=== PATIENT | male | born 1945 | race Caucasian/White ===

== ENCOUNTER 2017-06-10 21:56 | Inpatient (IN) | payer MEDICARE ==
[~2017-06-10] VITALS: Ht 177.8 cm; Wt 130.0 kg
[~2017-06-10 21:56] MED LIST: ASPIRIN325 MG PO; BENADRYL25 MG PO; CLARITIN10 M1 PO; E 10001000 UNIT PO; FISH OIL1 CAP PO; GLUCOSAMINE500 M1 PO; HYZAAR1 TA2 PO; METO50TA52 PO; MULTI 501 PO; NIASPAN1000 ER PO; SAW PALMETTO1 CAP; TAMSULOSIN HCL0.4 MG PO; TYLENOL PM PO; VITAMIN B CO PO; VITAMIN D31000 UNI1 PO; ZOCOR20 MG PO
--- NOTE | 2017-06-10 22:08 | NUR ---
PATIENT TO TREATMENT AREA FROM WAITING ROOM. UNDRESSED INTO A GOWN. TRIAGE COMPLETED AT BEDSIDE. AWAITING MD STEVENS.
[2017-06-10 22:41] LABS: HEMATOCRIT 42.3 % (39.0-50.0); HEMOGLOBIN 14.5 g/dl (14.0-18.0); IMMATURE GRANULOCYTES 0.2 % (0.0-1.0); MEAN CELL VOLUME 92.4 fL CALC (80.0-100.0); MEAN CORPUSCULAR HGB 31.7 pG CALC (26.0-32.0); MEAN CORPUSCULAR HGB CONC 34.3 g/L CALC (32.0-36.0); NEUT# 9.22 thou/uL (1.82-7.42); RED BLOOD COUNT 4.58 mill/uL (4.70-6.10); RED CELL DISTRI WIDTH 13.1 % (11.5-15.5)
[2017-06-10 22:50] LABS: INFLUENZA A NONE DETECTED (NONE DETECT); INFLUENZA B NONE DETECTED (NONE DETECT)
[2017-06-10 23:25] LABS: URINE BILIRUBIN - DIPSTICK NEGATIVE (NEGATIVE); URINE BLOOD DIPSTICK NEGATIVE (NEGATIVE); URINE CLARITY CLEAR; URINE COLOR YELLOW; URINE GLUCOSE - DIPSTICK NEGATIVE (NEGATIVE); URINE KETONE NEGATIVE (NEGATIVE); URINE LEUK ESTERASE NEGATIVE (Negative); URINE NITRITE - DIPSTICK NEGATIVE (Negative); URINE PH 5.5 (4.5-8.0); URINE PROTEIN - DIPSTICK NEGATIVE (NEG-TRACE); URINE SPECIFIC GRAVITY 1.015; URINE UROBILINOGEN - DIPSTICK 0.2 E.U./dL (0.2)
[2017-06-10 23:27] LABS: ALBUMIN 4.2 g/dL (3.2-5.0); ALKALINE PHOSPHATASE 98 u/l (38-126); ANION GAP 16 (6-22 (CALC)); BILIRUBIN, TOTAL 0.4 mg/dL (0.0-1.4); BUN 18 mg/dL (8-23); BUN/CREATININE RATIO 19 (12-20 (CALC)); CARBON DIOXIDE 25 mmol/l (22-30); CHLORIDE 103 mmol/l (95-108); GFR > 60 ML/MIN (>=60 (CALC)); GFR FOR AFR.AMER. > 60 ML/MIN (>=60 (CALC)); POTASSIUM 4.5 mmol/l (3.5-5.1); SGOT/AST 30 u/l (19-48); SGPT/ALT 31 u/l (11-66); SODIUM 139 mmol/l (137-146); TOTAL PROTEIN 6.6 g/dL (6.3-8.2)
--- NOTE | 2017-06-10 23:45 | NUR ---
DISCUSSED CURRENT ANTIBIOTIC REGIMEN. RADIOLOGY RESULTS PENDING.
--- NOTE | 2017-06-11 00:35 | NUR ---
RESTING QUIETLY AWAITING DISPOSITION.
--- NOTE | 2017-06-11 01:36 | NUR ---
Admission Note Report Given to: ADONIS BUTTS Transported by: Wheelchair X Stretcher Transported with: X Nurse Transporter X Patent IV O2 Development Editor
[2017-06-11 01:38] VITALS: BP 111/60
--- NOTE | 2017-06-11 01:38 | NUR ---
RECEIVED FROM ER VIA STRETCHER ACCOMPANIED BY ER NURSE. AMBULATING TO STANDING SCALE THEN TO BED WITH STEADY GAIT. A/O X3, RESPIRATIONS EVEN AND UNLABORED ON RA. C/O NOT FEELING WELL AND HIGH FEVER PRIOR TO COMMING TO ER. NS INFUSING TO RH WITH NO COMPLICATION. ORIENTED TO BED COTROLS AND CALL LIGHT FOR ASSISTANCE. WILL CONTINUE TO MONITOR.
--- NOTE | 2017-06-11 04:30 | NUR ---
RESTING ON LEFT SIDE WITH EYES CLOSED, RESPIRATIONS EVEN AND UNLABORED. CALL LIGHT IN REACH.
[2017-06-11 04:32] VITALS: BP 126/73
--- NOTE | 2017-06-11 07:40 | NUR ---
ASSESSMENT IS COMPLTED: IV SITE IS FREE FROM REDNESS OR EDEMA. NO DISTRESS THIS AM. CONTINUE TO OBSERVE AND MONITOR.
[2017-06-11 09:00] VITALS: BP 119/60
[2017-06-11] MEDS ORDERED: PROSTATE SR PO (10:05)
--- NOTE | 2017-06-11 12:44 | NUR ---
PT'S WOULD LIKE HIS WALLET TO TAKE HOME. CALLED BUSINESS OFFICE AND THEY ARE BRINGING IT UP TO PT AND .
[2017-06-11 15:22] VITALS: BP 144/70
--- NOTE | 2017-06-11 15:48 | NUR ---
Patient feels good. Patient was educated on current abx taken. denied any side effects pertaining to medications. c
--- NOTE | 2017-06-11 16:00 | NUR ---
PT IS RELAXING IN BED WITH NO DISTRSS NOTED IV SITE IS FREE FROM REDNESS OR EDEMA.
--- NOTE | 2017-06-11 19:05 | NUR ---
REPORT RECEIVED FROM FAVIO EDMOND;PT RESTING IN SEMI FOWLERS POSITION;INTRODUCED SELF TO PT AND POC DISCUSSED;PT ENCOURAGED TO CALL FOR ASSISTANCE IF NEEDED;CALL LIGHT IN REACH;WILL CONTINUE TO MONITOR
[2017-06-11 20:00] VITALS: BP 137/64
--- NOTE | 2017-06-11 21:10 | NUR ---
PT RESTING IN SEMI FOWLERS POSITION WITH AT BEDSIDE;A&O X3;ASSESSMENT COMPLETED;RESPIRATIONS EVEN AND UNLABORED ON RA;WHEEZING NOTED WITH NON-PRODUCTIVE COUGH; PT VOICES NO PAIN OR DISCOMFORTS;ABDOMEN SOFT UPON PALPATION;STRONG PEDAL PULSES;#20G TO RIGHT HAND FLUSHED AND PATENT,SITE APPEARS HEALTHY AND FREE FROM REDNESS;PERRLA;SAFETY PRECAUTIONS REINFORCED AND PT ENCOURAGED TO CALL FOR ASSISTANCE IF NEEDED;CALL LIGHT IN REACH;WILL CONTINUE TO MONITOR
--- NOTE | 2017-06-11 23:20 | NUR ---
#20G TO RIGHT HAND FOUND INFILTRATED;SITE REMOVED WITH CATHETER INTACT;NEW #22G STARTED TO LEFT HAND FLUSHED AND PATENT;PT DENIES ANY OTHER NEEDS AT THIS TIME;CALL LIGHT IN REACH;WILL CONTINUE TO MONITOR
--- NOTE | 2017-06-11 23:40 | NUR ---
PT RESTING IN SEMI FOWLERS POSITION;PT VOICES NO COMPLAINTS OF PAIN OR DISCOMFORTS;RESPIRATIONS EVEN AND UNLABORED ON RA;FRESH WATER PROVIDED PER REQUEST;CALL LIGHT IN REACH;WILL CONTINUE TO MONITOR
[2017-06-12 04:29] VITALS: BP 134/64
--- NOTE | 2017-06-12 04:30 | NUR ---
PT APPEARS TO BE SLEEPING WITH EYES CLOSED IN SEMI FOWLERS POSITION;PT WAKES TO VERBAL STIMULI;VS OBTAINED;RESPIRATIONS EVEN AND UNLABORED ON RA;PT CLAMMY AND WARM TO TOUCH,CURRENT TEMP 98.3;PT REPORTS VOIDING IN THE TOILET AND NOT THE URINAL,RE-EDUCATED ON COLLECTING I&O'S;PT REPORTS VOIDING 1 TIME LAST NIGHT "AROUND 600CC";PT DENIES ANY OTHER NEEDS AT THIS TIME;CALL LIGHT IN REACH;WILL CONTINUE TO MONITOR
[2017-06-12 05:21] LABS: HEMATOCRIT 39.5 % (39.0-50.0); HEMOGLOBIN 13.4 g/dl (14.0-18.0); IMMATURE GRANULOCYTES 0.6 % (0.0-1.0); MEAN CELL VOLUME 92.3 fL CALC (80.0-100.0); MEAN CORPUSCULAR HGB 31.3 pG CALC (26.0-32.0); MEAN CORPUSCULAR HGB CONC 33.9 g/L CALC (32.0-36.0); NEUT# 6.04 thou/uL (1.82-7.42); RED BLOOD COUNT 4.28 mill/uL (4.70-6.10); RED CELL DISTRI WIDTH 12.8 % (11.5-15.5)
[2017-06-12 05:28] LABS: ANION GAP 16 (6-22 (CALC)); BUN 14 mg/dL (8-23); BUN/CREATININE RATIO 20 (12-20 (CALC)); CARBON DIOXIDE 24 mmol/l (22-30); CHLORIDE 105 mmol/l (95-108); CREATININE 0.7 mg/dL (0.7-1.3); GFR > 60 ML/MIN (>=60 (CALC)); GFR FOR AFR.AMER. > 60 ML/MIN (>=60 (CALC)); MAGNESIUM 2.1 mg/dL (1.6-2.3); POTASSIUM 4.6 mmol/l (3.5-5.1); SODIUM 141 mmol/l (137-146)
[2017-06-12 08:10] VITALS: BP 110/47
--- NOTE | 2017-06-12 08:10 | NUR ---
ASSESSMENT IS COMPLTED: IV SITE IS FREE FROM REDNESS OR EDEMA. BREATH SOUNDS ARE BETTER , HR IS REG,PULSES ARE STRONG X4,ABD IS SOFT WITH ACTIVE BS,. NO DISTRESS NOTED.
[2017-06-12 09:39] VITALS: BP 110/47
--- NOTE | 2017-06-12 12:15 | NUR ---
PT IS RELAXING IM BED WITH NO DISTRESS NOTED IV SITE IS FREE FROM REDNESS OR EDEMA.
[2017-06-12] MEDS ORDERED: PREDNISONE10 MG PO (13:39)
[2017-06-12] MEDS ORDERED: LEVAQUIN750 MG PO (13:39)
--- NOTE | 2017-06-12 14:31 | NUR ---
Patient feels better today and is getting a discharge. Patient was educated on Levofloxacin and Prednisone.c
--- NOTE | 2017-06-12 14:35 | NUR ---
PT RECEIVED DISCHARGE INSTRUCTIONS IV SITE DISCONTINEUD CATHTER INTACT, NO REDNESS OR EDEMA. FAMILY IN THE ROOM. VERBALIZED UNDERSTANDING. CONTINUE TO OBSERVE AND MONITOR.
== END 2017-06-12 14:25 | disposition home or self-care (01) | DRG 194 ==
LOC: ED 21:56 → ED-I 06-11 → ED 06-11 00:43 → MS2 06-11 00:44
PROVIDERS: Emergency Medicine; Nurse Practitioner Family; ADMIT Internal Medicine; ATTEND Internal Medicine
DX: J18.9 Pneumonia, unspecified organism (principal); I50.32 Chronic diastolic (congestive) heart failure; I11.0 Hypertensive heart disease with heart failure; Z68.41 Body mass index [BMI] 40.0-44.9, adult; E78.5 Hyperlipidemia, unspecified; J02.0 Streptococcal pharyngitis; Z98.84 Bariatric surgery status; Z87.891 Personal history of nicotine dependence

== ENCOUNTER 2018-05-29 10:10 | Observation (INO) | payer MEDICARE ==
[~2018-05-29] VITALS: Ht 177.8 cm; Wt 129.0 kg
[~2018-05-29 10:10] MED LIST changes: +LEVAQUIN750 MG PO; +PREDNISONE10 MG PO; +PROSTATE SR PO
[2018-05-29 10:50] LABS: HEMATOCRIT 39.1 % (39.0-50.0); HEMOGLOBIN 13.3 g/dl (14.0-18.0); IMMATURE GRANULOCYTES 0.4 % (0.0-5.0); MEAN CELL VOLUME 94.7 fL CALC (80.0-100.0); MEAN CORPUSCULAR HGB 32.2 pG CALC (26.0-32.0); NEUT# 4.16 thou/uL (1.82-7.42); RED BLOOD COUNT 4.13 mill/uL (4.70-6.10); RED CELL DISTRI WIDTH 13.3 % (11.5-15.5)
[2018-05-29 10:58] LABS: ALBUMIN 3.9 g/dL (3.2-5.0); ALKALINE PHOSPHATASE 71 u/l (38-126); ANION GAP 14 (6-22 (CALC)); BILIRUBIN, TOTAL 0.5 mg/dL (0.0-1.4); BUN 16 mg/dL (8-23); BUN/CREATININE RATIO 19 (12-20 (CALC)); CARBON DIOXIDE 27 mmol/l (22-30); CHLORIDE 103 mmol/l (95-108); CREATININE 0.8 mg/dL (0.7-1.3); GFR > 60 ML/MIN (>=60 (CALC)); GFR FOR AFR.AMER. > 60 ML/MIN (>=60 (CALC)); POTASSIUM 4.3 mmol/l (3.5-5.1); SGOT/AST 30 u/l (19-48); SODIUM 140 mmol/l (137-146); TOTAL PROTEIN 6.1 g/dL (6.3-8.2)
[2018-05-29 12:42] VITALS: BP 168/76
[2018-05-29 14:33] VITALS: BP 150/73
[2018-05-29 17:11] VITALS: BP 154/63
[2018-05-29 18:49] VITALS: BP 143/67
[2018-05-29 23:46] VITALS: BP 116/68
[2018-05-30 03:59] VITALS: BP 141/72
[2018-05-30 06:24] LABS: HEMATOCRIT 39.6 % (39.0-50.0); HEMOGLOBIN 13.4 g/dl (14.0-18.0); MEAN CELL VOLUME 93.6 fL CALC (80.0-100.0); MEAN CORPUSCULAR HGB 31.7 pG CALC (26.0-32.0); MEAN CORPUSCULAR HGB CONC 33.8 g/L CALC (32.0-36.0); RED BLOOD COUNT 4.23 mill/uL (4.70-6.10); RED CELL DISTRI WIDTH 13.3 % (11.5-15.5)
[2018-05-30 06:42] LABS: CHOLESTEROL HDL RATIO 2.9 (<4.4 (CALC)); MAGNESIUM 2.1 mg/dL (1.6-2.3)
[2018-05-30 07:57] LABS: URINE BILIRUBIN - DIPSTICK NEGATIVE (NEGATIVE); URINE BLOOD DIPSTICK NEGATIVE (NEGATIVE); URINE COLOR YELLOW; URINE GLUCOSE - DIPSTICK NEGATIVE (NEGATIVE); URINE KETONE NEGATIVE (NEGATIVE); URINE LEUK ESTERASE NEGATIVE (NEGATIVE); URINE NITRITE - DIPSTICK NEGATIVE (Negative); URINE PROTEIN - DIPSTICK NEGATIVE (NEG-TRACE); URINE SPECIFIC GRAVITY <=1.005; URINE UROBILINOGEN - DIPSTICK 0.2 E.U./dL (0.2)
[2018-05-30 08:43] VITALS: BP 115/56
[2018-05-30] MEDS ORDERED: ZYRTEC10 MG PO (11:19)
[2018-05-30] MEDS ORDERED: FLONASE AL50 MCG/ACT NAB (11:19)
[2018-05-30] MEDS ORDERED: LASIX 20 MG TAB20 MG PO (11:22)
[2018-05-30 11:26] VITALS: BP 133/72
== END 2018-05-30 12:59 | disposition home or self-care (01) ==
LOC: ED 10:10 → ED-I 11:24 → ED 11:53 → MS2 11:54
PROVIDERS: Emergency Medicine; Internal Medicine; Nurse Practitioner Family; ADMIT Internal Medicine; ATTEND Internal Medicine
DX: R07.2 Precordial pain (principal); I16.0 Hypertensive urgency; I11.0 Hypertensive heart disease with heart failure; I50.9 Heart failure, unspecified; E78.5 Hyperlipidemia, unspecified; N40.0 Benign prostatic hyperplasia without lower urinary tract symptoms; J06.9 Acute upper respiratory infection, unspecified; J30.2 Other seasonal allergic rhinitis; E66.01 Morbid (severe) obesity due to excess calories; T48.5X5A Adverse effect of other anti-common-cold drugs, initial encounter; Z68.41 Body mass index [BMI] 40.0-44.9, adult; Z87.891 Personal history of nicotine dependence; Z98.84 Bariatric surgery status

== ENCOUNTER 2021-01-01 14:40 | Emergency (ER) | payer MEDICARE ==
[~2021-01-01] VITALS: Ht 177.8 cm; Wt 120.0 kg
[~2021-01-01 14:40] MED LIST changes: +FLONASE AL50 MCG/ACT NAB; +LASIX 20 MG TAB20 MG PO; +ZYRTEC10 MG PO
[2021-01-01 18:52] LABS: ANION GAP 9 (6-22 (CALC)); BUN 18 mg/dL (8-23); BUN/CREATININE RATIO 21 (12-20 (CALC)); CARBON DIOXIDE 27 mmol/l (22-30); CHLORIDE 104 mmol/l (95-108); CREATININE 0.8 mg/dL (0.7-1.3); GFR > 60 ML/MIN (>=60 (CALC)); GFR FOR AFR.AMER. > 60 ML/MIN (>=60 (CALC)); POTASSIUM 4.3 mmol/l (3.5-5.1); SODIUM 136 mmol/l (137-146)
[2021-01-01 21:16] VITALS: BP 216/92
== END 2021-01-01 21:40 | disposition home or self-care (01) ==
LOC: ED 14:40
PROVIDERS: Emergency Medicine
DX: R53.1 Weakness (principal); R29.6 Repeated falls; C91.10 Chronic lymphocytic leukemia of B-cell type not having achieved remission; I11.0 Hypertensive heart disease with heart failure; I50.9 Heart failure, unspecified; Z98.84 Bariatric surgery status

== ENCOUNTER 2024-03-24 08:51 | Day surgery (SDC) | payer MEDICARE ==
[~2024-03-24] VITALS: Ht 175.3 cm; Wt 112.0 kg
[~2024-03-24 08:51] MED LIST changes: +ACETAMINOPHEN325 MG PO; +ALL DAY10 MG PO; +DONEPEZIL10 MG PO; +FINASTERIDE5 MG PO; +FLONASE AL50 MCG/ACT; +LOSARTAN PO; +OXYBUTYNIN CHLOR5 M1 PO; +SIMVASTATIN PO; +TAMSULOSIN0.4 MG PO
[2024-03-24] MEDS ORDERED: LACTATED RINGER'S 1,000 ML IV ONE (08:54)
[2024-03-24] MEDS ORDERED: FAMOTIDINE 10MG/ML 2ML SDV IV ONE (08:54)
[2024-03-24] MEDS ORDERED: OXYBUTYNIN CHLOR5 M3 (09:10)
[2024-03-24 11:10] VITALS: BP 144/69
[2024-03-24] MEDS ORDERED: PROPOFOL 200 MG/20 ML VIAL IV ONE (14:16)
[2024-03-24] MEDS ORDERED: LIDOCAINE HCL 2% 2ML SDV IV ONE (14:16)
== END 2024-03-24 11:27 | disposition home or self-care (01) ==
LOC: ORM 08:51
PROVIDERS: ATTEND Surgery
PROC: 0DBE8ZX Excision of Large Intestine, Via Natural or Artificial Opening Endoscopic, Diagnostic (ICD-10-PCS; principal; 2024-03-24)
PROC: 0DJ08ZZ Inspection of Upper Intestinal Tract, Via Natural or Artificial Opening Endoscopic (ICD-10-PCS; 2024-03-24)
DX: K57.30 Diverticulosis of large intestine without perforation or abscess without bleeding (principal); K64.8 Other hemorrhoids; K95.89 Other complications of other bariatric procedure; I10 Essential (primary) hypertension; Y84.8 Other medical procedures as the cause of abnormal reaction of the patient, or of later complication, without mention of misadventure at the time of the procedure; Z79.85 Long-term (current) use of injectable non-insulin antidiabetic drugs; Z95.0 Presence of cardiac pacemaker